=== PATIENT | female | born 1995 | race Hispanic/Latino ===

== ENCOUNTER 2023-12-11 01:41 | Inpatient (IN) | payer MEDICAID ==
[~2023-12-11] VITALS: Ht 160 cm; Wt 85.7 kg
[~2023-12-11 01:41] MED LIST: PNV91TAB3 PO; PREN-202 PO
[2023-12-11] MEDS ORDERED: LACTATED RINGERS 1000ML 1,000 ML IV SCH (02:30)
[2023-12-11 02:33] LABS: HEMATOCRIT 33.3 % (36-48); MEAN CORPUSCULAR HEMOGLOBIN 29.4 pg (27.0-33.0); MEAN CORPUSCULAR HGB CONC 32.1 g/dL (32.0-36.0); MEAN CORPUSCULAR VOLUME 91.5 fL (79-99); RED BLOOD CELL COUNT(AUTO) 3.64 MIL/uL (4.00-5.50); RED CELL DISTRIBUTION WIDTH 13.2 % (11.0-15.5); WHITE BLOOD COUNT (AUTO) 7.3 K/uL (4.8-10.8)
[2023-12-11 03:33] LABS: HIV 1&2 ANTIBODY Non-Reactive (Negative); HIV-1 p24 Antigen Non-Reactive (Negative)
[2023-12-11] MEDS: ceFAZolin SODIUM 2 GM VIAL IVPB PRN (05:36)
[2023-12-11] MEDS ORDERED: 0.9%NACL 10ML VIAL IVP PRN (06:00)
[2023-12-11] MEDS ORDERED: ondanSETRON 4MG INJ IVP PRN (06:00)
[2023-12-11] MEDS ORDERED: DEXTROSE 5 %-0.45 % NACL 1,000 ML IV PRN (06:00)
[2023-12-11] MEDS: DiphenhydrAMINE HCL 50 MG/ML VIAL IV ONE (06:37)
[2023-12-11] MEDS: MEPERIDINE-PF 75 MG/ML SYG IM PRN (08:53)
[2023-12-11] MEDS: PROMETHAZINE HCL 25 MG/ML 1ML AMPULE IM PRN (08:53)
[2023-12-11 09:46] LABS: RAPID PLASMA REAGIN NONREACTIVE (NONREACTIVE)
[2023-12-11 11:39] VITALS: BP 116/51; PULSE 78; RESP 18; TEMP 98.2
[2023-12-11 15:42] VITALS: BP 127/65; PULSE 96; RESP 18; TEMP 98.4
[2023-12-11 19:31] VITALS: BP 118/61; PULSE 60; RESP 20; TEMP 96.8
[2023-12-11] MEDS ORDERED: acetaMINOPHEN 500 MG TABLET PO PRN (20:00)
[2023-12-11] MEDS ORDERED: HYDROcodone/APAP 5/325 1 TAB TABLET PO PRN (20:00)
[2023-12-11] MEDS ORDERED: LANOLIN 30GM OINTMENT TP PRN (20:00)
[2023-12-11] MEDS ORDERED: DiphenhydrAMINE HCL 25 MG CAPSULE PO PRN (20:00)
[2023-12-11] MEDS ORDERED: BisaCODYL 10 MG SUPP.RECT RC PRN (20:00)
[2023-12-11] MEDS: doCUSate SODIUM 100 MG CAP PO SCH (20:26)
[2023-12-11] MEDS: SIMETHICONE 80 MG TAB.CHEW PO PRN (20:26)
[2023-12-11] MEDS: acetaMINOPHEN WITH coDEINE 1 TAB TAB PO PRN (20:35)
[2023-12-11 23:09] VITALS: BP 124/71; PULSE 91; RESP 16; TEMP 97.3
[2023-12-12 03:30] VITALS: BP 134/69; PULSE 94; RESP 16; TEMP 98
[2023-12-12 07:06] LABS: HEMATOCRIT 27.3 % (36-48); MEAN CORPUSCULAR HGB CONC 32.6 g/dL (32.0-36.0); MEAN CORPUSCULAR VOLUME 91.9 fL (79-99); RED BLOOD CELL COUNT(AUTO) 2.97 MIL/uL (4.00-5.50); RED CELL DISTRIBUTION WIDTH 13.6 % (11.0-15.5); WHITE BLOOD COUNT (AUTO) 7.7 K/uL (4.8-10.8)
[2023-12-12 08:00] VITALS: BP 115/69; PULSE 84; RESP 18; TEMP 98.3
[2023-12-12] MEDS ORDERED: FLU VACC TS2024-25(6MOS UP)/PF 45 MCG/0.5 ML ML IM ONE (09:00)
[2023-12-12] MEDS: ibuPROFEN 600 MG TABLET PO PRN (10:01)
[2023-12-12 11:57] VITALS: BP 129/77; PULSE 102; RESP 20; TEMP 97.9
== END 2023-12-12 02:45 | disposition home or self-care (01) | DRG 540 ==
LOC: EDH 01:41 → OBSVTOIN 01:42 → LDH 01:42 → WSH 09:59
PROVIDERS: ADMIT Obstetrics & Gynecology; ATTEND Obstetrics & Gynecology
PROC: 10D00Z1 Extraction of Products of Conception, Low, Open Approach (ICD-10-PCS; principal; 2023-12-11)
PROC: 0JNC0ZZ Release Pelvic Region Subcutaneous Tissue and Fascia, Open Approach (ICD-10-PCS; 2023-12-11)
DX: O99.892 Other specified diseases and conditions complicating childbirth (principal); N73.6 Female pelvic peritoneal adhesions (postinfective); O34.211 Maternal care for low transverse scar from previous cesarean delivery; Z3A.39 39 weeks gestation of pregnancy; Z37.0 Single live birth
CPT/HCPCS: 36415; 59510; 85027; 86592; 86701; 86850; 86900; 86901; 87340; 87390; A4344; G0378; J1200; J2175; J2250; J2274; J2405; J2550; J2590; J7120; A4248; C1765; J0690